=== PATIENT | male | born 1950 | race African-American/Black ===

== ENCOUNTER 2022-03-15 15:39 | Inpatient (IN) | payer MEDICARE, MEDICAID ==
[~2022-03-15] VITALS: Ht 177.8 cm; Wt 84.6 kg
[~2022-03-15 15:39] MED LIST: CYCL5TAB PO; MELO-106 PO; ORPH100T2 PO
[2022-03-15] MEDS ORDERED: SODIUM CHLORIDE 0.9% 1,000 ML IV ONE (15:45)
[2022-03-15] MEDS ORDERED: LORAZEPAM 2MG/ML CPJ IM ONE (15:45)
[2022-03-15] MEDS ORDERED: LORAZEPAM 2MG/ML CPJ IV ONE (16:45)
[2022-03-15] MEDS ORDERED: LEVETIRACETAM 1000MG PREMIX 200 ML IV ONE (16:45)
[2022-03-15 17:32] LABS: BASOPHILS % 0.4 % (0.0-2.0); EOSINOPHILS % 0.3 % (0.0-5.0); HEMATOCRIT. 45.6 % (42.0-52.0); HEMOGLOBIN. 15.4 g/dL (14.0-18.0); LYMPHOCYTES % 16.7 % (20.0-50.0); MEAN CORPUSCULAR HEMOGLOBIN 29.9 pg (28.0-32.0); MEAN CORPUSCULAR VOLUME 88.5 fL (80.0-94.0); MEAN PLATELET VOLUME 8.5 fl (7.4-10.4); MONOCYTES % 10.3 % (2.0-8.0); NEUTROPHILS % 72.3 % (40.0-76.0); PLATELET 227 x1000/uL (130-400); RED BLOOD CELL COUNT 5.15 mill/uL (4.7-6.1); RED CELL DISTRIBUTION WIDTH 13.6 % (11.6-14.6)
[2022-03-15 17:42] LABS: CHLORIDE 106 mEq/L (98-107)
[2022-03-16 03:28] VITALS: BP 128/80
[2022-03-16] MEDS ORDERED: ACETAMINOPHEN 325MG TABLET PO PRN (04:15)
[2022-03-16] MEDS ORDERED: ONDANSETRON HCL 4MG TABLET PO PRN (04:15)
[2022-03-16] MEDS: HYDROCODONE/ACETAMINOPHEN 5/325MG TABLET PO PRN ×3 (04:26→22:12)
[2022-03-16 07:40] LABS: BASOPHILS % 0.6 % (0.0-2.0); EOSINOPHILS % 1.6 % (0.0-5.0); HEMOGLOBIN. 13.3 g/dL (14.0-18.0); LYMPHOCYTES % 23.7 % (20.0-50.0); MEAN CORPUSCULAR HEMOGLOBIN 29.7 pg (28.0-32.0); MEAN CORPUSCULAR VOLUME 89.2 fL (80.0-94.0); MONOCYTES % 12.8 % (2.0-8.0); NEUTROPHILS % 61.3 % (40.0-76.0); PLATELET 196 x1000/uL (130-400); RED BLOOD CELL COUNT 4.48 mill/uL (4.7-6.1); RED CELL DISTRIBUTION WIDTH 13.3 % (11.6-14.6)
[2022-03-16 08:00] VITALS: BP 123/87
[2022-03-16] MEDS: LEVETIRACETAM 500MG TABLET PO SCH ×2 (08:17→22:11)
[2022-03-16 09:05] LABS: CHLORIDE 108 mEq/L (98-107)
[2022-03-16] MEDS ORDERED: POTASSIUM CHLORIDE 20MEQ TABLET SR PO NR (11:54)
[2022-03-16 12:00] VITALS: BP 115/77
[2022-03-16 16:00] VITALS: BP 115/82
[2022-03-16 20:00] VITALS: BP 113/77
[2022-03-16] MEDS ORDERED: PNEUMOCOCCAL 23-VAL P-SAC VAC 0.5 ML IM ONE (21:00)
[2022-03-16] MEDS ORDERED: INFLUENZA VACCINE 05/PF 0.5 ML SYRINGE IM ONE (21:00)
[2022-03-17] VITALS: BP 120/80
[2022-03-17] MEDS: HYDROCODONE/ACETAMINOPHEN 5/325MG TABLET PO PRN ×2 (02:09→12:44)
[2022-03-17 04:00] VITALS: BP 124/76
[2022-03-17 06:51] LABS: BASOPHILS % 0.9 % (0.0-2.0); EOSINOPHILS % 2.6 % (0.0-5.0); HEMATOCRIT. 40.4 % (42.0-52.0); HEMOGLOBIN. 13.5 g/dL (14.0-18.0); LYMPHOCYTES % 33.1 % (20.0-50.0); MEAN CORPUSCULAR HEMOGLOBIN 29.4 pg (28.0-32.0); MEAN CORPUSCULAR VOLUME 88.2 fL (80.0-94.0); MEAN PLATELET VOLUME 8.3 fl (7.4-10.4); MONOCYTES % 14.1 % (2.0-8.0); NEUTROPHILS % 49.3 % (40.0-76.0); PLATELET 193 x1000/uL (130-400); RED BLOOD CELL COUNT 4.58 mill/uL (4.7-6.1); RED CELL DISTRIBUTION WIDTH 13.4 % (11.6-14.6)
[2022-03-17 08:00] VITALS: BP 114/79
[2022-03-17] MEDS: LEVETIRACETAM 500MG TABLET PO SCH (09:21)
[2022-03-17 12:00] VITALS: BP 120/74
[2022-03-17 13:40] LABS: CHLORIDE 104 mEq/L (98-107)
[2022-03-17] MEDS ORDERED: LEVE750T4 MT (13:44)
[2022-03-17 15:04] VITALS: BP 120/74
[2022-03-17 16:00] VITALS: BP 115/82
== END 2022-03-17 19:35 | disposition home or self-care (01) | DRG 101 ==
LOC: ER 15:39 → 8WST 23:18 → ENRESERV 03-16 01:57
PROVIDERS: ADMIT Internal Medicine; ATTEND Internal Medicine
DX: G40.109 Localization-related (focal) (partial) symptomatic epilepsy and epileptic syndromes with simple partial seizures, not intractable, without status epilepticus (principal); I10 Essential (primary) hypertension; Z79.899 Other long term (current) drug therapy; Z98.2 Presence of cerebrospinal fluid drainage device; Z86.73 Personal history of transient ischemic attack (TIA), and cerebral infarction without residual deficits
CPT/HCPCS: 36415; 80048; 80053; 82962; 85025; 90686; 90732; 99285; J1953; J2060; J7030

== ENCOUNTER 2022-07-17 09:58 | Inpatient (IN) | payer MEDICARE, MEDICAID ==
[~2022-07-17] VITALS: Ht 182.9 cm; Wt 89.8 kg
[~2022-07-17 09:58] MED LIST changes: +AMLO5TAB88 MT; +ATOR10TA69 MT; +BACL-141 MT; +DOCU250C69 MT; +GABA-532 MT; +HYDR-4001 MT; +LEVE250T2 MT; +LEVE500T19 MT; +LEVE750T4 MT; +LINA290C MT; +TERA5CAP4 MT
[2022-07-17] MEDS ORDERED: LEVETIRACETAM 1000MG PREMIX 100 ML IV NR (10:30)
[2022-07-17] MEDS ORDERED: LORAZEPAM 2MG/ML CPJ IV NR (10:30)
[2022-07-17 10:47] LABS: BASOPHILS % 0.7 % (0.0-2.0); EOSINOPHILS % 2.2 % (0.0-5.0); HEMATOCRIT. 42.7 % (42.0-52.0); HEMOGLOBIN. 14.3 g/dL (14.0-18.0); LYMPHOCYTES % 28.1 % (20.0-50.0); MEAN CORPUSCULAR HEMOGLOBIN 29.5 pg (28.0-32.0); MEAN CORPUSCULAR VOLUME 87.8 fL (80.0-94.0); MEAN PLATELET VOLUME 8.1 fl (7.4-10.4); MONOCYTES % 11.3 % (2.0-8.0); NEUTROPHILS % 57.7 % (40.0-76.0); PLATELET 207 x1000/uL (130-400); RED BLOOD CELL COUNT 4.86 mill/uL (4.7-6.1); RED CELL DISTRIBUTION WIDTH 13.4 % (11.6-14.6)
[2022-07-17 10:56] LABS: CHLORIDE 108 mEq/L (98-107)
[2022-07-17 11:03] LABS: ETHANOL BLOOD < 10 mg/dL
[2022-07-17 11:18] LABS: CLARITY URINE CLEAR (CLEAR); COLOR URINE YELLOW (YELLOW); KETONES URINE NEGATIVE (NEGATIVE); LEUKOCYTE ESTERASE URINE NEGATIVE (NEGATIVE); NITRITE URINE NEGATIVE (NEGATIVE); OCCULT BLOOD URINE NEGATIVE (NEGATIVE); PROTEIN URINE NEGATIVE (NEGATIVE); SPECIFIC GRAVITY URINE 1.018 (1.005-1.030)
[2022-07-17 12:30] LABS: *AMPHETAMINES SCREEN URINE NEGATIVE (NEGATIVE); *BARBITURATES SCREEN URINE NEGATIVE (NEGATIVE); *BENZODIAZEPINES SCREEN URINE NEGATIVE (NEGATIVE); *COCAINE SCREEN URINE NEGATIVE (NEGATIVE); CANNABINOID URINE SCREEN NEGATIVE (NEGATIVE); METHADONE URINE SCREEN NEGATIVE (NEGATIVE); OPIATES URINE SCREEN NEGATIVE (NEGATIVE); PHENCYCLIDINE URINE SCREEN NEGATIVE (NEGATIVE)
[2022-07-17] MEDS ORDERED: ONDANSETRON HCL 4MG/2ML INJ IV PRN (14:45)
[2022-07-17] MEDS ORDERED: DIPHENHYDRAMINE 50MG/ML VIAL IV PRN (14:45)
[2022-07-17] MEDS ORDERED: IPRATROPIUM/ALBUTEROL 0.5-3(2.5)MG/3ML NEB HHN PRN (14:45)
[2022-07-17] MEDS ORDERED: CLONIDINE 0.1MG TABLET PO PRN (14:45)
[2022-07-17] MEDS ORDERED: ACETAMINOPHEN 325MG TABLET PO PRN (14:45)
[2022-07-17] MEDS ORDERED: LORAZEPAM 2MG/ML CPJ IV PRN (15:45)
[2022-07-17 17:00] VITALS: BP 135/74
[2022-07-17] MEDS ORDERED: ALBUTEROL (0.083%) 2.5MG/3ML NEB HHN PRN (17:30)
[2022-07-17] MEDS ORDERED: IPRATROPIUM BROMIDE (0.02%) 0.5MG/2.5ML NEB HHN PRN (17:30)
[2022-07-17 20:00] VITALS: BP 138/67
[2022-07-17] MEDS ORDERED: LEVETIRACETAM 500MG PREMIX 100 ML IV SCH (20:00)
[2022-07-17 22:00] VITALS: BP 106/54
[2022-07-18] VITALS: BP 104/79
[2022-07-18] MEDS: LEVETIRACETAM 500MG PREMIX 100 ML IV SCH ×2 (00:45→09:35)
[2022-07-18 02:00] VITALS: BP 109/72
[2022-07-18 04:00] VITALS: BP 104/74
[2022-07-18 06:00] VITALS: BP 110/72
[2022-07-18 06:01] LABS: BASOPHILS % 0.7 % (0.0-2.0); EOSINOPHILS % 2.1 % (0.0-5.0); HEMOGLOBIN. 13.2 g/dL (14.0-18.0); LYMPHOCYTES % 27.8 % (20.0-50.0); MEAN CORPUSCULAR VOLUME 88.6 fL (80.0-94.0); MEAN PLATELET VOLUME 8.1 fl (7.4-10.4); MONOCYTES % 11.2 % (2.0-8.0); NEUTROPHILS % 58.2 % (40.0-76.0); PLATELET 212 x1000/uL (130-400); RED BLOOD CELL COUNT 4.41 mill/uL (4.7-6.1); RED CELL DISTRIBUTION WIDTH 13.2 % (11.6-14.6)
[2022-07-18 06:38] LABS: CHLORIDE 108 mEq/L (98-107)
[2022-07-18 11:39] VITALS: BP 117/79
[2022-07-18] MEDS: ZONISAMIDE 100MG CAPSULE PO SCH ×2 (12:24→18:35)
[2022-07-18] MEDS ORDERED: ZONI100C45 PO (12:47)
[2022-07-18 16:00] VITALS: BP 120/74
[2022-07-18] MEDS ORDERED: LEVETIRACETAM 250MG TABLET PO SCH (21:00)
== END 2022-07-18 19:44 | disposition left against medical advice (07) | DRG 101 ==
LOC: ER 09:58 → ENRESERV 14:56 → 7WST 16:58
PROVIDERS: ADMIT Internal Medicine; ATTEND Internal Medicine
DX: R56.9 Unspecified convulsions (principal); F03.90 Unspecified dementia, unspecified severity, without behavioral disturbance, psychotic disturbance, mood disturbance, and anxiety; I10 Essential (primary) hypertension; G83.14 Monoplegia of lower limb affecting left nondominant side; N40.0 Benign prostatic hyperplasia without lower urinary tract symptoms; E78.5 Hyperlipidemia, unspecified; H53.462 Homonymous bilateral field defects, left side; Z53.29 Procedure and treatment not carried out because of patient's decision for other reasons; I25.2 Old myocardial infarction; Z98.2 Presence of cerebrospinal fluid drainage device; Z86.73 Personal history of transient ischemic attack (TIA), and cerebral infarction without residual deficits
CPT/HCPCS: 36415; 71045; 80053; 80185; 80305; 80320; 81003; 85025; 93970; 99285; J1200; J1953; J2060; G0480

== ENCOUNTER 2022-08-19 17:33 | Emergency (ER) | payer MEDICARE, MEDICAID ==
[~2022-08-19] VITALS: Ht 185.4 cm; Wt 79.0 kg
[~2022-08-19 17:33] MED LIST changes: +ZONI100C45 PO
[2022-08-19] MEDS ORDERED: LEVETIRACETAM 1000MG PREMIX 100 ML IV ONE (18:15)
[2022-08-19] MEDS ORDERED: MIDAZOLAM HCL 2 MG/2 ML VIAL IM ONE (18:15)
[2022-08-19] MEDS ORDERED: LEVETIRACETAM 1000MG PREMIX 100 ML IV NR (18:15)
[2022-08-19 18:26] LABS: BASOPHILS % 0.6 % (0.0-2.0); EOSINOPHILS % 1.3 % (0.0-5.0); HEMOGLOBIN. 14.8 g/dL (14.0-18.0); LYMPHOCYTES % 29.4 % (20.0-50.0); MEAN CORPUSCULAR HEMOGLOBIN 29.9 pg (28.0-32.0); MEAN CORPUSCULAR VOLUME 88.9 fL (80.0-94.0); MEAN PLATELET VOLUME 7.8 fl (7.4-10.4); MONOCYTES % 10.4 % (2.0-8.0); NEUTROPHILS % 58.3 % (40.0-76.0); PLATELET 206 x1000/uL (130-400); RED BLOOD CELL COUNT 4.95 mill/uL (4.7-6.1); RED CELL DISTRIBUTION WIDTH 13.7 % (11.6-14.6)
[2022-08-19 18:39] LABS: CHLORIDE 107 mEq/L (98-107)
[2022-08-19 18:47] LABS: ETHANOL BLOOD < 10 mg/dL
[2022-08-19] MEDS ORDERED: KETOROLAC 30MG/ML VIAL IV ONE (19:45)
[2022-08-19 19:57] LABS: CLARITY URINE CLEAR (CLEAR); COLOR URINE YELLOW (YELLOW); KETONES URINE NEGATIVE (NEGATIVE); LEUKOCYTE ESTERASE URINE NEGATIVE (NEGATIVE); NITRITE URINE NEGATIVE (NEGATIVE); OCCULT BLOOD URINE 1+ (NEGATIVE); PROTEIN URINE NEGATIVE (NEGATIVE); SPECIFIC GRAVITY URINE 1.021 (1.005-1.030)
[2022-08-19 20:08] LABS: *AMPHETAMINES SCREEN URINE NEGATIVE (NEGATIVE); *BARBITURATES SCREEN URINE NEGATIVE (NEGATIVE); *BENZODIAZEPINES SCREEN URINE PRESUMTIVE POSITIVE (NEGATIVE); *COCAINE SCREEN URINE NEGATIVE (NEGATIVE); CANNABINOID URINE SCREEN NEGATIVE (NEGATIVE); METHADONE URINE SCREEN NEGATIVE (NEGATIVE); OPIATES URINE SCREEN PRESUMTIVE POSITIVE (NEGATIVE); PHENCYCLIDINE URINE SCREEN NEGATIVE (NEGATIVE)
[2022-08-19 20:45] VITALS: BP 122/67
== END 2022-08-19 23:07 | disposition home or self-care (01) ==
LOC: ER 17:33
DX: R56.9 Unspecified convulsions (principal); I25.2 Old myocardial infarction; I10 Essential (primary) hypertension; Z79.899 Other long term (current) drug therapy; Z86.73 Personal history of transient ischemic attack (TIA), and cerebral infarction without residual deficits
CPT/HCPCS: 36415; 80053; 80305; 80320; 81003; 85025; 96365; 96372; 96375; 99284; J1885; J1953; J2250; G0480

== ENCOUNTER 2022-08-29 17:14 | Inpatient (IN) | payer MEDICARE, MEDICAID ==
[~2022-08-29] VITALS: Ht 182.9 cm; Wt 82.6 kg
[~2022-08-29 17:14] MED LIST changes: -ORPH100T2 PO; +[UNRECOGNIZED DRUG - CODE] PO
[2022-08-29] MEDS ORDERED: NITROGLYCERIN 0.4MG TABLET SL SL PRN (19:15)
[2022-08-29 19:52] LABS: CHLORIDE 109 mEq/L (98-107)
[2022-08-29 20:18] LABS: EOSINOPHILS % 1.7 % (0.0-5.0); HEMATOCRIT. 40.4 % (42.0-52.0); HEMOGLOBIN. 13.4 g/dL (14.0-18.0); LYMPHOCYTES % 25.9 % (20.0-50.0); MEAN CORPUSCULAR HEMOGLOBIN 29.8 pg (28.0-32.0); MEAN CORPUSCULAR VOLUME 89.5 fL (80.0-94.0); MEAN PLATELET VOLUME 8.3 fl (7.4-10.4); MONOCYTES % 11.9 % (2.0-8.0); NEUTROPHILS % 59.5 % (40.0-76.0); PLATELET 218 x1000/uL (130-400); RED BLOOD CELL COUNT 4.52 mill/uL (4.7-6.1); RED CELL DISTRIBUTION WIDTH 13.5 % (11.6-14.6)
[2022-08-29] MEDS ORDERED: LEVETIRACETAM 500MG TABLET PO ONE (21:15)
[2022-08-29] MEDS ORDERED: HYDROCODONE/ACETAMINOPHEN 5/325MG TABLET PO ONE (21:15)
[2022-08-29] MEDS ORDERED: MAGNESIUM/ALUMINUM HYDROXIDE/SIMETHICONE 30ML UDC PO PRN (22:15)
[2022-08-29] MEDS ORDERED: ONDANSETRON HCL 4MG/2ML INJ IV PRN (22:15)
[2022-08-29] MEDS ORDERED: GUAIFENESIN 200MG/10ML SUGAR FREE UDC PO PRN (22:15)
[2022-08-29] MEDS ORDERED: CLONIDINE 0.1MG TABLET PO PRN (22:15)
[2022-08-29] MEDS ORDERED: IPRATROPIUM/ALBUTEROL 0.5-3(2.5)MG/3ML NEB HHN PRN (22:15)
[2022-08-29] MEDS ORDERED: HYDROCODONE/ACETAMINOPHEN 5/325MG TABLET PO NR (23:00)
[2022-08-29] MEDS ORDERED: LEVETIRACETAM 500MG TABLET PO NR (23:00)
[2022-08-30 02:00] VITALS: BP 117/69
[2022-08-30 03:09] VITALS: BP 117/69
[2022-08-30] MEDS: PANTOPRAZOLE 40MG DR TABLET PO SCH (06:26)
[2022-08-30] MEDS: ACETAMINOPHEN 325MG TABLET PO PRN (06:27)
[2022-08-30 07:04] LABS: BASOPHILS % 0.6 % (0.0-2.0); EOSINOPHILS % 2.1 % (0.0-5.0); HEMATOCRIT. 38.4 % (42.0-52.0); HEMOGLOBIN. 13.2 g/dL (14.0-18.0); LYMPHOCYTES % 33.7 % (20.0-50.0); MEAN CORPUSCULAR HEMOGLOBIN 30.5 pg (28.0-32.0); MEAN PLATELET VOLUME 8.4 fl (7.4-10.4); MONOCYTES % 13.2 % (2.0-8.0); NEUTROPHILS % 50.4 % (40.0-76.0); PLATELET 212 x1000/uL (130-400); RED BLOOD CELL COUNT 4.32 mill/uL (4.7-6.1); RED CELL DISTRIBUTION WIDTH 13.6 % (11.6-14.6)
[2022-08-30 07:07] LABS: CHLORIDE 111 mEq/L (98-107)
[2022-08-30 07:21] LABS: CREATINE KINASE 87 IU/L (39-308); CREATINE KINASE MB FRACTION 1.2 ng/mL (0.5-3.6); HDL CHOLESTEROL 67 mg/dL (40-59); LDL CHOLESTEROL 66 mg/dL (5-100); T4 FREE 0.94 ng/dL (0.76-1.46)
[2022-08-30 08:00] VITALS: BP_SYST 107; BP_SYST 118; BP_DIAS 67; BP_DIAS 75
[2022-08-30] MEDS: LEVETIRACETAM 500MG/5ML CUP PO SCH ×2 (10:14→21:56)
[2022-08-30] MEDS: FOLIC ACID 1MG TABLET PO SCH (10:16)
[2022-08-30] MEDS: ASPIRIN 81MG EC TABLET PO SCH (10:17)
[2022-08-30] MEDS: FERROUS SULFATE 325MG TABLET PO SCH (10:17)
[2022-08-30] MEDS: THIAMINE HCL 100MG TABLET PO SCH (10:19)
[2022-08-30] MEDS: MULTIVITAMINS,THER W-MINERALS TABLET PO SCH (10:19)
[2022-08-30] MEDS: ENOXAPARIN 40MG/0.4ML SYR SUBCUT SCH (10:20)
[2022-08-30] MEDS: DOCUSATE SODIUM 100MG CAPSULE PO PRN (10:40)
[2022-08-30] MEDS: ZONISAMIDE 100MG CAPSULE PO SCH (10:40)
[2022-08-30 11:57] LABS: *AMPHETAMINES SCREEN URINE NEGATIVE (NEGATIVE); *BARBITURATES SCREEN URINE NEGATIVE (NEGATIVE); *BENZODIAZEPINES SCREEN URINE NEGATIVE (NEGATIVE); *COCAINE SCREEN URINE NEGATIVE (NEGATIVE); CANNABINOID URINE SCREEN NEGATIVE (NEGATIVE); METHADONE URINE SCREEN NEGATIVE (NEGATIVE); OPIATES URINE SCREEN PRESUMTIVE POSITIVE (NEGATIVE); PHENCYCLIDINE URINE SCREEN NEGATIVE (NEGATIVE)
[2022-08-30 12:00] VITALS: BP 112/72
[2022-08-30 16:52] LABS: CREATINE KINASE MB FRACTION 1.2 ng/mL (0.5-3.6)
[2022-08-30 20:00] VITALS: BP 112/68
[2022-08-30] MEDS: ATORVASTATIN CALCIUM 10MG TABLET PO SCH (21:56)
[2022-08-30] MEDS: GABAPENTIN 300MG CAPSULE PO SCH (21:56)
[2022-08-31] VITALS: BP 136/82
[2022-08-31 00:18] LABS: CREATINE KINASE MB FRACTION 1.2 ng/mL (0.5-3.6)
[2022-08-31] MEDS ORDERED: HYDROCODONE/ACETAMINOPHEN 5/325MG TABLET PO NR (00:30)
[2022-08-31 04:00] VITALS: BP 139/89
[2022-08-31] MEDS: PANTOPRAZOLE 40MG DR TABLET PO SCH (06:42)
[2022-08-31] MEDS: DOCUSATE SODIUM 100MG CAPSULE PO PRN (06:56)
[2022-08-31 08:00] VITALS: BP 122/77
[2022-08-31 08:05] LABS: BASOPHILS % 0.8 % (0.0-2.0); HEMATOCRIT. 42.3 % (42.0-52.0); HEMOGLOBIN. 14.1 g/dL (14.0-18.0); LYMPHOCYTES % 32.1 % (20.0-50.0); MEAN CORPUSCULAR VOLUME 89.8 fL (80.0-94.0); MEAN PLATELET VOLUME 8.1 fl (7.4-10.4); MONOCYTES % 13.2 % (2.0-8.0); NEUTROPHILS % 50.9 % (40.0-76.0); PLATELET 226 x1000/uL (130-400); RED BLOOD CELL COUNT 4.71 mill/uL (4.7-6.1); RED CELL DISTRIBUTION WIDTH 13.5 % (11.6-14.6)
[2022-08-31 08:32] LABS: CHLORIDE 104 mEq/L (98-107)
[2022-08-31] MEDS: ASPIRIN 81MG EC TABLET PO SCH (09:14)
[2022-08-31] MEDS: FERROUS SULFATE 325MG TABLET PO SCH (09:14)
[2022-08-31] MEDS: FOLIC ACID 1MG TABLET PO SCH (09:14)
[2022-08-31] MEDS: ENOXAPARIN 40MG/0.4ML SYR SUBCUT SCH (09:15)
[2022-08-31] MEDS: ZONISAMIDE 100MG CAPSULE PO SCH (09:15)
[2022-08-31] MEDS: MULTIVITAMINS,THER W-MINERALS TABLET PO SCH (09:15)
[2022-08-31] MEDS: LEVETIRACETAM 500MG/5ML CUP PO SCH ×2 (09:16→20:37)
[2022-08-31] MEDS: THIAMINE HCL 100MG TABLET PO SCH (09:16)
[2022-08-31 12:00] VITALS: BP 123/74
[2022-08-31] MEDS: ACETAMINOPHEN 325MG TABLET PO PRN (14:17)
[2022-08-31] MEDS ORDERED: BISACODYL 10MG SUPP PR PRN (14:30)
[2022-08-31 16:00] VITALS: BP 129/78
[2022-08-31 20:00] VITALS: BP 112/57
[2022-08-31] MEDS ORDERED: MAGNESIUM 2 G PREMIX 50 ML IV ONE (20:00)
[2022-08-31] MEDS: TERAZOSIN HCL 5MG CAPSULE PO SCH (20:31)
[2022-08-31] MEDS: GABAPENTIN 300MG CAPSULE PO SCH (20:31)
[2022-08-31] MEDS: ATORVASTATIN CALCIUM 10MG TABLET PO SCH (20:31)
[2022-09-01] VITALS: BP 100/56
[2022-09-01 04:00] VITALS: BP 107/64
[2022-09-01 07:24] LABS: BASOPHILS % 0.8 % (0.0-2.0); EOSINOPHILS % 2.3 % (0.0-5.0); HEMATOCRIT. 39.3 % (42.0-52.0); HEMOGLOBIN. 13.5 g/dL (14.0-18.0); LYMPHOCYTES % 29.6 % (20.0-50.0); MEAN CORPUSCULAR HEMOGLOBIN 30.2 pg (28.0-32.0); MEAN CORPUSCULAR VOLUME 88.3 fL (80.0-94.0); MEAN PLATELET VOLUME 8.2 fl (7.4-10.4); MONOCYTES % 13.6 % (2.0-8.0); NEUTROPHILS % 53.7 % (40.0-76.0); PLATELET 217 x1000/uL (130-400); RED BLOOD CELL COUNT 4.45 mill/uL (4.7-6.1); RED CELL DISTRIBUTION WIDTH 13.2 % (11.6-14.6)
[2022-09-01 07:32] LABS: CHLORIDE 105 mEq/L (98-107)
[2022-09-01 07:40] LABS: PHOSPHORUS 3.3 mg/dL (2.5-4.9)
[2022-09-01 08:00] VITALS: BP 110/62
[2022-09-01] MEDS: MULTIVITAMINS,THER W-MINERALS TABLET PO SCH (08:31)
[2022-09-01] MEDS: THIAMINE HCL 100MG TABLET PO SCH (08:31)
[2022-09-01] MEDS: FERROUS SULFATE 325MG TABLET PO SCH (08:31)
[2022-09-01] MEDS: FOLIC ACID 1MG TABLET PO SCH (08:31)
[2022-09-01] MEDS: ZONISAMIDE 100MG CAPSULE PO SCH (08:31)
[2022-09-01] MEDS: ASPIRIN 81MG EC TABLET PO SCH (08:31)
[2022-09-01] MEDS: PANTOPRAZOLE 40MG DR TABLET PO SCH (08:31)
[2022-09-01] MEDS: ENOXAPARIN 40MG/0.4ML SYR SUBCUT SCH (08:33)
[2022-09-01] MEDS: LEVETIRACETAM 500MG/5ML CUP PO SCH ×2 (09:14→20:39)
[2022-09-01 12:00] VITALS: BP 115/69
[2022-09-01] MEDS: HYDROCODONE/ACETAMINOPHEN 5/325MG TABLET PO PRN (13:29)
[2022-09-01] MEDS ORDERED: NALOXONE HCL 0.4MG/ML VIAL IV PRN (13:30)
[2022-09-01 16:00] VITALS: BP 118/72
[2022-09-01 20:00] VITALS: BP 112/74
[2022-09-01] MEDS: ATORVASTATIN CALCIUM 10MG TABLET PO SCH (20:39)
[2022-09-01] MEDS: GABAPENTIN 300MG CAPSULE PO SCH (20:40)
[2022-09-01] MEDS: TERAZOSIN HCL 5MG CAPSULE PO SCH (20:51)
[2022-09-02] VITALS: BP 94/61
[2022-09-02] MEDS: HYDROCODONE/ACETAMINOPHEN 5/325MG TABLET PO PRN ×3 (01:57→21:07)
[2022-09-02 04:00] VITALS: BP 98/62
[2022-09-02 06:54] LABS: PROTHROMBIN TIME 10.6 sec (9.6-11.0)
[2022-09-02 07:31] LABS: CHLORIDE 106 mEq/L (98-107)
[2022-09-02 07:47] LABS: BASOPHILS % 0.7 % (0.0-2.0); EOSINOPHILS % 2.4 % (0.0-5.0); HEMATOCRIT. 42.7 % (42.0-52.0); HEMOGLOBIN. 14.4 g/dL (14.0-18.0); LYMPHOCYTES % 33.8 % (20.0-50.0); MEAN PLATELET VOLUME 8.1 fl (7.4-10.4); MONOCYTES % 12.8 % (2.0-8.0); NEUTROPHILS % 50.3 % (40.0-76.0); PLATELET 230 x1000/uL (130-400); RED CELL DISTRIBUTION WIDTH 13.4 % (11.6-14.6)
[2022-09-02 08:00] VITALS: BP 109/66
[2022-09-02] MEDS: LEVETIRACETAM 500MG/5ML CUP PO SCH ×2 (08:58→21:04)
[2022-09-02] MEDS: ZONISAMIDE 100MG CAPSULE PO SCH (08:59)
[2022-09-02] MEDS: FOLIC ACID 1MG TABLET PO SCH (08:59)
[2022-09-02] MEDS: MULTIVITAMINS,THER W-MINERALS TABLET PO SCH (08:59)
[2022-09-02] MEDS: ENOXAPARIN 40MG/0.4ML SYR SUBCUT SCH (08:59)
[2022-09-02] MEDS: FERROUS SULFATE 325MG TABLET PO SCH (08:59)
[2022-09-02] MEDS: ASPIRIN 81MG EC TABLET PO SCH (08:59)
[2022-09-02] MEDS: THIAMINE HCL 100MG TABLET PO SCH (08:59)
[2022-09-02] MEDS: FAMOTIDINE 20MG TABLET PO SCH ×2 (09:11→21:04)
[2022-09-02] MEDS ORDERED: IOHEXOL-350 100 ML BOTTLE ONE (10:05)
[2022-09-02] MEDS ORDERED: NITROGLYCERIN SPRAY/4.9GM CAN TL ONE (14:15)
[2022-09-02 20:00] VITALS: BP 109/61
[2022-09-02] MEDS: TERAZOSIN HCL 5MG CAPSULE PO SCH (21:00)
[2022-09-02] MEDS: GABAPENTIN 300MG CAPSULE PO SCH (21:04)
[2022-09-02] MEDS: ATORVASTATIN CALCIUM 10MG TABLET PO SCH (21:04)
[2022-09-02] MEDS: DOCUSATE SODIUM 100MG CAPSULE PO PRN (21:28)
[2022-09-03] VITALS: BP 112/69
[2022-09-03] MEDS: HYDROCODONE/ACETAMINOPHEN 5/325MG TABLET PO PRN ×2 (00:25→09:34)
[2022-09-03 04:00] VITALS: BP 116/71
[2022-09-03 08:00] VITALS: BP 118/82
[2022-09-03] MEDS: ENOXAPARIN 40MG/0.4ML SYR SUBCUT SCH (09:00)
[2022-09-03] MEDS: MULTIVITAMINS,THER W-MINERALS TABLET PO SCH (09:00)
[2022-09-03] MEDS: FERROUS SULFATE 325MG TABLET PO SCH (09:21)
[2022-09-03] MEDS: FAMOTIDINE 20MG TABLET PO SCH (09:22)
[2022-09-03] MEDS: ASPIRIN 81MG EC TABLET PO SCH (09:22)
[2022-09-03] MEDS: THIAMINE HCL 100MG TABLET PO SCH (09:22)
[2022-09-03] MEDS: ZONISAMIDE 100MG CAPSULE PO SCH (09:22)
[2022-09-03] MEDS: FOLIC ACID 1MG TABLET PO SCH (09:22)
[2022-09-03 09:34] VITALS: BP 116/71
[2022-09-03] MEDS: LEVETIRACETAM 500MG/5ML CUP PO SCH (09:38)
== END 2022-09-03 12:26 | disposition home or self-care (01) | DRG 313 ==
LOC: ER 17:14 → 8WST 20:41 → SUPCPDRO 23:22 → ENRESERV 23:48
PROVIDERS: ADMIT Internal Medicine; ATTEND Internal Medicine
DX: R07.89 Other chest pain (principal); I42.9 Cardiomyopathy, unspecified; G40.909 Epilepsy, unspecified, not intractable, without status epilepticus; I10 Essential (primary) hypertension; E78.5 Hyperlipidemia, unspecified; G62.9 Polyneuropathy, unspecified; F03.90 Unspecified dementia, unspecified severity, without behavioral disturbance, psychotic disturbance, mood disturbance, and anxiety; E78.00 Pure hypercholesterolemia, unspecified; I25.10 Atherosclerotic heart disease of native coronary artery without angina pectoris; G89.29 Other chronic pain; Z86.73 Personal history of transient ischemic attack (TIA), and cerebral infarction without residual deficits; Z98.2 Presence of cerebrospinal fluid drainage device; I25.2 Old myocardial infarction; Z79.899 Other long term (current) drug therapy
CPT/HCPCS: 36415; 71045; 75571; 80048; 80053; 80061; 80305; 82550; 82553; 83036; 83735; 83880; 84100; 84439; 84443; 84484; 85025; 85379; 93005; 93306; 93970; 97162; 97535; 99285; J1650; Q9967

== ENCOUNTER 2022-09-19 12:11 | Emergency (ER) | payer MEDICARE, MEDICAID ==
[~2022-09-19] VITALS: Ht 177.8 cm; Wt 90.0 kg
[~2022-09-19 12:11] MED LIST changes: +ORPH100T2 PO; -[UNRECOGNIZED DRUG - CODE] PO
[2022-09-19 13:00] LABS: BASOPHILS % 0.8 % (0.0-2.0); HEMATOCRIT. 43.9 % (42.0-52.0); HEMOGLOBIN. 14.4 g/dL (14.0-18.0); LYMPHOCYTES % 26.4 % (20.0-50.0); MEAN CORPUSCULAR HEMOGLOBIN 29.4 pg (28.0-32.0); MEAN CORPUSCULAR VOLUME 89.5 fL (80.0-94.0); MEAN PLATELET VOLUME 7.3 fl (7.4-10.4); MONOCYTES % 10.7 % (2.0-8.0); NEUTROPHILS % 60.1 % (40.0-76.0); PLATELET 281 x1000/uL (130-400); RED CELL DISTRIBUTION WIDTH 13.5 % (11.6-14.6)
[2022-09-19 13:04] LABS: CHLORIDE 111 mEq/L (98-107)
[2022-09-19 13:06] LABS: PROTHROMBIN TIME 10.9 sec (9.6-11.0)
[2022-09-19 13:30] LABS: CLARITY URINE CLEAR (CLEAR); COLOR URINE YELLOW (YELLOW); KETONES URINE TRACE (NEGATIVE); LEUKOCYTE ESTERASE URINE 1+ (NEGATIVE); NITRITE URINE NEGATIVE (NEGATIVE); OCCULT BLOOD URINE TRACE (NEGATIVE); PH URINE 6.5 (4.5-8.0); PROTEIN URINE NEGATIVE (NEGATIVE); SPECIFIC GRAVITY URINE 1.024 (1.005-1.030)
[2022-09-19 17:28] VITALS: BP 120/88
== END 2022-09-19 17:32 | disposition home or self-care (01) ==
LOC: ER 12:45
DX: R07.89 Other chest pain (principal); E78.00 Pure hypercholesterolemia, unspecified; I25.2 Old myocardial infarction; I10 Essential (primary) hypertension; Z91.013 Allergy to seafood; Z98.890 Other specified postprocedural states; Z79.899 Other long term (current) drug therapy; Z86.73 Personal history of transient ischemic attack (TIA), and cerebral infarction without residual deficits; Z86.59 Personal history of other mental and behavioral disorders
CPT/HCPCS: 36415; 71045; 80053; 81003; 84484; 85025; 93005; 99285

== ENCOUNTER 2023-01-15 08:51 | Emergency (ER) | payer MEDICARE, MEDICAID ==
[~2023-01-15] VITALS: Ht 177.8 cm; Wt 77.0 kg
[~2023-01-15 08:51] MED LIST changes: -ORPH100T2 PO; +[UNRECOGNIZED DRUG - CODE] PO
[2023-01-15 08:59] VITALS: O2SAT 98
[2023-01-15 09:10] VITALS: BP 104/67; PULSE 81; RESP 16; TEMP 98.2
[2023-01-15] MEDS ORDERED: AMOX1TAB16 MT (09:31)
[2023-01-15] MEDS ORDERED: SULF1TAB48 MT (09:31)
== END 2023-01-15 10:29 | disposition home or self-care (01) ==
LOC: ER 08:51
DX: L97.119 Non-pressure chronic ulcer of right thigh with unspecified severity (principal); I25.2 Old myocardial infarction; I10 Essential (primary) hypertension; Z91.013 Allergy to seafood; Z79.899 Other long term (current) drug therapy
CPT/HCPCS: 99283

== ENCOUNTER 2023-07-16 01:51 | Inpatient (IN) | payer MEDICARE, MEDICAID ==
[~2023-07-16] VITALS: Ht 177.8 cm; Wt 81.6 kg
[~2023-07-16 01:51] MED LIST changes: -HYDR-4001 MT; -LEVE250T2 MT; -LEVE750T4 MT; +LEVO750T68 PO
[2023-07-16 02:52] LABS: BASOPHILS % 0.5 % (0.0-2.0); EOSINOPHILS % 1.9 % (0.0-5.0); HEMOGLOBIN. 15.8 g/dL (14.0-18.0); MEAN CORPUSCULAR HEMOGLOBIN 29.5 pg (28.0-32.0); MEAN CORPUSCULAR VOLUME 89.6 fL (80.0-94.0); MEAN PLATELET VOLUME 7.9 fl (7.4-10.4); MONOCYTES % 10.4 % (2.0-8.0); NEUTROPHILS % 59.2 % (40.0-76.0); PLATELET 238 x1000/uL (130-400); RED BLOOD CELL COUNT 5.36 mill/uL (4.7-6.1); RED CELL DISTRIBUTION WIDTH 13.6 % (11.6-14.6); WHITE BLOOD COUNT 4.7 x1000/uL (4.5-11.0)
[2023-07-16 03:13] LABS: ALANINE AMINOTRANSFERASE < 7 IU/L (10-49); ALBUMIN 4.7 g/dL (3.2-4.8); ASPARTATE AMINOTRANSFERASE 14 IU/L (<34); BILIRUBIN TOTAL 0.6 mg/dL (0.1-1.0); CALCIUM 8.6 mg/dL (8.7-10.4); CARBON DIOXIDE 26 mEq/L (21-32); CHLORIDE 110 mEq/L (98-107); ETHANOL BLOOD < 10 mg/dL (<10); GLUCOSE 79 mg/dL (70-105); PROTEIN TOTAL 7.5 g/dL (6.0-8.3); SODIUM 140 mEq/L (136-145); UREA NITROGEN BLOOD 16 mg/dL (9-23)
[2023-07-16 03:22] LABS: TROPONIN I HIGH SENSITIVITY < 4 ng/L (3.0-53)
[2023-07-16] MEDS: ASPIRIN 81MG EC TABLET PO NR (07:02)
[2023-07-16] MEDS ORDERED: IPRATROPIUM/ALBUTEROL 0.5-3(2.5)MG/3ML NEB HHN PRN (07:30)
[2023-07-16] MEDS ORDERED: CLONIDINE 0.1MG TABLET PO PRN (07:30)
[2023-07-16] MEDS ORDERED: DOCUSATE SODIUM 100MG CAPSULE PO PRN (07:30)
[2023-07-16] MEDS ORDERED: NITROGLYCERIN 0.4MG TABLET SL SL PRN (07:30)
[2023-07-16] MEDS ORDERED: MAGNESIUM/ALUMINUM HYDROXIDE/SIMETHICONE 30ML UDC PO PRN (07:30)
[2023-07-16] MEDS ORDERED: ACETAMINOPHEN 325MG TABLET PO PRN ×2 (07:30)
[2023-07-16] MEDS ORDERED: GUAIFENESIN 200MG/10ML SUGAR FREE UDC PO PRN (07:30)
[2023-07-16] MEDS ORDERED: ONDANSETRON HCL 4MG/2ML INJ IV PRN (07:30)
[2023-07-16 09:27] LABS: T4 FREE 1.03 ng/dL (0.89-1.76); THYROID STIMULATING HORMONE 1.75 uIU/mL (0.55-4.78)
[2023-07-16 10:00] VITALS: BP 144/92; PULSE 60; RESP 18; TEMP 97.6
[2023-07-16] MEDS: ASPIRIN 81MG EC TABLET PO SCH (10:09)
[2023-07-16] MEDS: ZONISAMIDE 100MG CAPSULE PO SCH (10:10)
[2023-07-16] MEDS: PANTOPRAZOLE 40MG DR TABLET PO SCH (10:10)
[2023-07-16] MEDS: LEVETIRACETAM 500MG TABLET PO SCH (10:11)
[2023-07-16 11:37] VITALS: BP 113/60; PULSE 56; RESP 19; TEMP 97.7
[2023-07-16 11:38] VITALS: BP_SYST 113; BP_SYST 119; BP_DIAS 80; BP_DIAS 82; PULSE 63; PULSE 79
[2023-07-16 16:28] VITALS: BP 139/91; PULSE 63; RESP 18; TEMP 98.3
[2023-07-16] MEDS: ENOXAPARIN 40MG/0.4ML SYR SUBCUT SCH (17:34)
[2023-07-16 20:00] VITALS: BP_SYST 114; BP_SYST 121; BP_SYST 123; BP_DIAS 75; BP_DIAS 81; BP_DIAS 90; PULSE 58; RESP 18; TEMP 98
[2023-07-16] MEDS: TERAZOSIN HCL 5MG CAPSULE PO SCH (20:30)
[2023-07-16] MEDS: ATORVASTATIN CALCIUM 20MG TABLET PO SCH (20:30)
[2023-07-16 23:56] VITALS: BP 91/52; PULSE 55; RESP 19; TEMP 97.9
[2023-07-17 01:10] LABS: CREATINE KINASE 81 IU/L (46-171); CREATINE KINASE MB FRACTION 1.3 ng/mL (0.5-3.6)
[2023-07-17 01:17] LABS: TROPONIN I HIGH SENSITIVITY < 4 ng/L (3.0-53)
[2023-07-17 04:00] VITALS: BP 102/61; PULSE 51; RESP 18; TEMP 97.8
[2023-07-17 07:03] LABS: BASOPHILS % 0.7 % (0.0-2.0); EOSINOPHILS % 2.2 % (0.0-5.0); HEMATOCRIT. 40.6 % (42.0-52.0); HEMOGLOBIN. 13.7 g/dL (14.0-18.0); LYMPHOCYTES % 28.1 % (20.0-50.0); MEAN CORPUSCULAR HEMOGLOBIN 29.9 pg (28.0-32.0); MEAN CORPUSCULAR HGB CONC 33.7 g/dL (31.0-37.0); MEAN CORPUSCULAR VOLUME 88.7 fL (80.0-94.0); MEAN PLATELET VOLUME 8.4 fl (7.4-10.4); MONOCYTES % 10.8 % (2.0-8.0); NEUTROPHILS % 58.2 % (40.0-76.0); PLATELET 196 x1000/uL (130-400); RED BLOOD CELL COUNT 4.57 mill/uL (4.7-6.1); RED CELL DISTRIBUTION WIDTH 13.1 % (11.6-14.6)
[2023-07-17 07:26] LABS: CALCIUM 8.3 mg/dL (8.7-10.4); CARBON DIOXIDE 23 mEq/L (21-32); CHLORIDE 109 mEq/L (98-107); CREATININE 0.9 mg/dL (0.6-1.3); GLUCOSE 79 mg/dL (70-105); PHOSPHORUS 2.5 mg/dL (2.5-4.9); POTASSIUM 3.7 mEq/L (3.5-5.1); SODIUM 140 mEq/L (136-145); UREA NITROGEN BLOOD 18 mg/dL (9-23)
[2023-07-17 07:59] VITALS: BP 97/52; PULSE 48; RESP 18; TEMP 98
[2023-07-17] MEDS ORDERED: ATOR20TA PO (09:28)
[2023-07-17 10:07] VITALS: BP 97/52; PULSE 58; TEMP 98; O2SAT 93
[2023-07-17] MEDS: INFLUENZA VACCINE 05/PF 0.5 ML SYRINGE IM ONE (10:44)
== END 2023-07-17 13:34 | disposition home health service (06) | DRG 311 ==
LOC: ER 01:51 → 7WST 06:30
PROVIDERS: ADMIT Internal Medicine; ATTEND Internal Medicine
DX: I20.0 Unstable angina (principal); E78.5 Hyperlipidemia, unspecified; R00.1 Bradycardia, unspecified; R56.9 Unspecified convulsions; Z20.822 Contact with and (suspected) exposure to COVID-19; I10 Essential (primary) hypertension; I25.2 Old myocardial infarction; N40.0 Benign prostatic hyperplasia without lower urinary tract symptoms; Z79.82 Long term (current) use of aspirin; Z86.73 Personal history of transient ischemic attack (TIA), and cerebral infarction without residual deficits; Z98.2 Presence of cerebrospinal fluid drainage device
CPT/HCPCS: 36415; 71045; 72040; 73120; 80048; 80053; 80061; 80320; 82542; 82550; 82553; 83036; 83735; 83880; 84100; 84153; 84439; 84443; 84484; 85025; 85379; 87426; 90686; 93005; 93880; 97162; 99285; J1650; G0480

== ENCOUNTER 2023-07-29 23:07 | Emergency (ER) | payer MEDICARE, MEDICAID ==
[~2023-07-29] VITALS: Ht 177.8 cm; Wt 82.0 kg
[~2023-07-29 23:07] MED LIST changes: -AMLO5TAB88 MT; +ATOR20TA PO; -LEVO750T68 PO; -MELO-106 PO; -[UNRECOGNIZED DRUG - CODE] PO
[2023-07-29 23:11] VITALS: TEMP 97.9; O2SAT 100
[2023-07-30 01:44] LABS: BASOPHILS % 1.3 % (0.0-2.0); EOSINOPHILS % 1.5 % (0.0-5.0); HEMATOCRIT. 45.4 % (42.0-52.0); HEMOGLOBIN. 15.1 g/dL (14.0-18.0); LYMPHOCYTES % 37.1 % (20.0-50.0); MEAN CORPUSCULAR HEMOGLOBIN 30.4 pg (28.0-32.0); MEAN CORPUSCULAR HGB CONC 33.3 g/dL (31.0-37.0); MEAN CORPUSCULAR VOLUME 91.2 fL (80.0-94.0); MEAN PLATELET VOLUME 7.8 fl (7.4-10.4); NEUTROPHILS % 48.1 % (40.0-76.0); PLATELET 234 x1000/uL (130-400); RED BLOOD CELL COUNT 4.98 mill/uL (4.7-6.1); RED CELL DISTRIBUTION WIDTH 13.3 % (11.6-14.6); WHITE BLOOD COUNT 4.1 x1000/uL (4.5-11.0)
[2023-07-30 01:59] LABS: ALANINE AMINOTRANSFERASE < 7 IU/L (10-49); ALBUMIN 4.2 g/dL (3.2-4.8); ASPARTATE AMINOTRANSFERASE 11 IU/L (<34); BILIRUBIN TOTAL 0.6 mg/dL (0.1-1.0); CALCIUM 8.6 mg/dL (8.7-10.4); CARBON DIOXIDE 24 mEq/L (21-32); CHLORIDE 110 mEq/L (98-107); CREATININE 0.9 mg/dL (0.6-1.3); GLUCOSE 79 mg/dL (70-105); POTASSIUM 4.8 mEq/L (3.5-5.1); PROTEIN TOTAL 7.4 g/dL (6.0-8.3); SODIUM 139 mEq/L (136-145); UREA NITROGEN BLOOD 22 mg/dL (9-23)
[2023-07-30 02:10] LABS: TROPONIN I HIGH SENSITIVITY < 4 ng/L (3.0-53)
[2023-07-30 04:26] LABS: TROPONIN I HIGH SENSITIVITY < 4 ng/L (3.0-53)
[2023-07-30 04:44] VITALS: BP 89/56; PULSE 71; RESP 15
== END 2023-07-30 04:45 | disposition home or self-care (01) ==
LOC: ER 23:07
DX: R06.02 Shortness of breath (principal); I10 Essential (primary) hypertension; Z86.59 Personal history of other mental and behavioral disorders; Z86.73 Personal history of transient ischemic attack (TIA), and cerebral infarction without residual deficits; Z91.013 Allergy to seafood; Z79.899 Other long term (current) drug therapy
CPT/HCPCS: 36415; 71045; 80053; 83880; 84484; 85025; 85379; 99284

== ENCOUNTER 2023-08-17 18:08 | Emergency (ER) | payer MEDICARE, MEDICAID ==
[~2023-08-17] VITALS: Ht 182.9 cm; Wt 81.0 kg
[2023-08-17 18:21] VITALS: BP 112/59; PULSE 70; RESP 20; TEMP 98.2; O2SAT 97
[2023-08-17 19:53] LABS: BASOPHILS % 0.9 % (0.0-2.0); EOSINOPHILS % 2.2 % (0.0-5.0); HEMATOCRIT. 46.2 % (42.0-52.0); HEMOGLOBIN. 15.3 g/dL (14.0-18.0); MEAN CORPUSCULAR HEMOGLOBIN 29.4 pg (28.0-32.0); MEAN PLATELET VOLUME 8.4 fl (7.4-10.4); MONOCYTES % 10.4 % (2.0-8.0); NEUTROPHILS % 55.5 % (40.0-76.0); PLATELET 220 x1000/uL (130-400); RED BLOOD CELL COUNT 5.19 mill/uL (4.7-6.1); RED CELL DISTRIBUTION WIDTH 13.3 % (11.6-14.6); WHITE BLOOD COUNT 4.5 x1000/uL (4.5-11.0)
[2023-08-17] MEDS ORDERED: ONDANSETRON 4MG ODT PO ONE (20:00)
[2023-08-17 20:08] LABS: ALANINE AMINOTRANSFERASE < 7 IU/L (10-49); ALBUMIN 4.4 g/dL (3.2-4.8); ASPARTATE AMINOTRANSFERASE 13 IU/L (<34); BILIRUBIN TOTAL 0.4 mg/dL (0.1-1.0); CALCIUM 8.7 mg/dL (8.7-10.4); CARBON DIOXIDE 22 mEq/L (21-32); CHLORIDE 113 mEq/L (98-107); GLUCOSE 97 mg/dL (70-105); PROTEIN TOTAL 7.9 g/dL (6.0-8.3); SODIUM 141 mEq/L (136-145); UREA NITROGEN BLOOD 15 mg/dL (9-23)
[2023-08-17 21:26] LABS: TROPONIN I HIGH SENSITIVITY < 4 ng/L (3.0-53)
[2023-08-17] MEDS ORDERED: ONDANSETRON 4MG ODT PO NR (22:45)
[2023-08-17] MEDS ORDERED: GUAIFENESIN 200MG/10ML SUGAR FREE UDC PO PRN (23:45)
[2023-08-17] MEDS ORDERED: IPRATROPIUM/ALBUTEROL 0.5-3(2.5)MG/3ML NEB NEB PRN (23:45)
[2023-08-17] MEDS ORDERED: CLONIDINE 0.1MG TABLET PO PRN (23:45)
[2023-08-17] MEDS ORDERED: ACETAMINOPHEN 325MG TABLET PO PRN ×2 (23:45)
[2023-08-17] MEDS ORDERED: MAGNESIUM/ALUMINUM HYDROXIDE/SIMETHICONE 30ML UDC PO PRN (23:45)
[2023-08-17] MEDS ORDERED: DEXT 5%/0.45% NACL 1000ML 1,000 ML IV SCH (23:45)
[2023-08-17] MEDS ORDERED: ONDANSETRON HCL 4MG/2ML INJ IV PRN (23:45)
[2023-08-18] MEDS ORDERED: ENOXAPARIN 40MG/0.4ML SYR SUBCUT SCH (09:00)
== END 2023-08-17 23:40 | disposition home or self-care (01) ==
LOC: ER 18:08 → EDBEDREQ 22:03 → EDBEDREQTM 22:03 → ER 23:40
DX: R11.2 Nausea with vomiting, unspecified (principal); E78.00 Pure hypercholesterolemia, unspecified; I10 Essential (primary) hypertension; I25.2 Old myocardial infarction; R56.9 Unspecified convulsions; Z86.73 Personal history of transient ischemic attack (TIA), and cerebral infarction without residual deficits; Z79.899 Other long term (current) drug therapy
CPT/HCPCS: 36415; 80053; 84484; 85025; 93005; 99284; Q0162

== ENCOUNTER 2023-09-12 16:03 | Emergency (ER) | payer MEDICARE, MEDICAID ==
[~2023-09-12] VITALS: Ht 177.8 cm; Wt 70.0 kg
[~2023-09-12 16:03] MED LIST changes: +ASPI-1497 MT; -BACL-141 MT; -CYCL5TAB PO; -LINA290C MT
[2023-09-12 16:07] VITALS: O2SAT 94
[2023-09-12 17:13] LABS: CHLORIDE 108 mEq/L (98-107); POTASSIUM 4.1 mEq/L (3.5-5.1); SODIUM 138 mEq/L (136-145)
[2023-09-12 17:14] LABS: CALCIUM 9.1 mg/dL (8.7-10.4); CARBON DIOXIDE 21 mEq/L (21-32)
[2023-09-12 17:19] LABS: CREATININE 0.9 mg/dL (0.6-1.3); ETHANOL BLOOD 30 mg/dL (<10); GLUCOSE 124 mg/dL (70-105); UREA NITROGEN BLOOD 16 mg/dL (9-23)
[2023-09-12 17:23] LABS: TROPONIN I HIGH SENSITIVITY < 4 ng/L (3.0-53)
[2023-09-12 17:28] LABS: BASOPHILS % 0.5 % (0.0-2.0); EOSINOPHILS % 0.9 % (0.0-5.0); HEMATOCRIT. 44.2 % (42.0-52.0); HEMOGLOBIN. 14.6 g/dL (14.0-18.0); LYMPHOCYTES % 17.6 % (20.0-50.0); MEAN CORPUSCULAR HEMOGLOBIN 29.8 pg (28.0-32.0); MEAN CORPUSCULAR HGB CONC 33.2 g/dL (31.0-37.0); MEAN CORPUSCULAR VOLUME 89.9 fL (80.0-94.0); RED BLOOD CELL COUNT 4.91 mill/uL (4.7-6.1); RED CELL DISTRIBUTION WIDTH 13.3 % (11.6-14.6); WHITE BLOOD COUNT 6.6 x1000/uL (4.5-11.0)
[2023-09-12 17:30] LABS: DIFFERENTIAL COMMENT 1
[2023-09-12 18:03] LABS: PLATELET 196 x1000/uL (130-400)
[2023-09-12] MEDS ORDERED: DICYCLOMINE 10 MG/5 ML ORAL SYR PO STA (18:04)
[2023-09-12 18:23] VITALS: TEMP 98.2
[2023-09-12] MEDS: ONDANSETRON 4MG ODT PO STA (19:33)
[2023-09-12] MEDS: MAGNESIUM/ALUMINUM HYDROXIDE/SIMETHICONE 30ML UDC PO STA (19:33)
[2023-09-12] MEDS: DICYCLOMINE HCL 10MG CAPSULE PO NR (19:33)
[2023-09-12 19:53] LABS: TROPONIN I HIGH SENSITIVITY < 4 ng/L (3.0-53)
[2023-09-12 19:57] LABS: INR 0.9; PARTIAL THROMBOPLASTIN TIME 26.1 sec (23.4-31.0); PROTHROMBIN TIME 10.1 sec (9.6-11.0)
[2023-09-12] MEDS ORDERED: FAMO-135 MT (19:59)
[2023-09-12 20:40] VITALS: BP 148/75; PULSE 80; RESP 18
== END 2023-09-12 20:30 | disposition home or self-care (01) ==
LOC: ER 16:03
DX: F10.129 Alcohol abuse with intoxication, unspecified (principal); K29.20 Alcoholic gastritis without bleeding; E78.00 Pure hypercholesterolemia, unspecified; I10 Essential (primary) hypertension; I25.2 Old myocardial infarction; Z86.73 Personal history of transient ischemic attack (TIA), and cerebral infarction without residual deficits; Z91.013 Allergy to seafood; Y90.1 Blood alcohol level of 20-39 mg/100 ml
CPT/HCPCS: 80048; 80320; 83880; 83690; 85025; 85610; 85730; 84484; 36415; 71045; 93005; 99285; Q0162; G0480

== ENCOUNTER 2023-09-22 17:51 | Emergency (ER) | payer MEDICARE, MEDICAID ==
[~2023-09-22] VITALS: Ht 177.8 cm; Wt 84.0 kg
[~2023-09-22 17:51] MED LIST changes: +FAMO-135 MT
[2023-09-22 18:36] VITALS: O2SAT 98
[2023-09-22 18:41] LABS: BASOPHILS % 0.7 % (0.0-2.0); HEMATOCRIT. 44.9 % (42.0-52.0); HEMOGLOBIN. 14.9 g/dL (14.0-18.0); LYMPHOCYTES % 30.2 % (20.0-50.0); MEAN CORPUSCULAR HEMOGLOBIN 29.9 pg (28.0-32.0); MEAN CORPUSCULAR HGB CONC 33.1 g/dL (31.0-37.0); MEAN CORPUSCULAR VOLUME 90.3 fL (80.0-94.0); MEAN PLATELET VOLUME 8.1 fl (7.4-10.4); MONOCYTES % 11.6 % (2.0-8.0); NEUTROPHILS % 55.5 % (40.0-76.0); PLATELET 232 x1000/uL (130-400); RED BLOOD CELL COUNT 4.97 mill/uL (4.7-6.1); RED CELL DISTRIBUTION WIDTH 13.5 % (11.6-14.6); WHITE BLOOD COUNT 4.1 x1000/uL (4.5-11.0)
[2023-09-22 18:45] LABS: CHLORIDE 112 mEq/L (98-107); POTASSIUM 3.8 mEq/L (3.5-5.1); SODIUM 142 mEq/L (136-145)
[2023-09-22 18:46] LABS: CALCIUM 9.1 mg/dL (8.7-10.4); CARBON DIOXIDE 23 mEq/L (21-32)
[2023-09-22 18:51] LABS: CREATININE 0.9 mg/dL (0.6-1.3); GLUCOSE 101 mg/dL (70-105); UREA NITROGEN BLOOD 16 mg/dL (9-23)
[2023-09-22 19:01] LABS: TROPONIN I HIGH SENSITIVITY < 4 ng/L (3.0-53)
[2023-09-22 23:48] LABS: TROPONIN I HIGH SENSITIVITY < 4 ng/L (3.0-53)
[2023-09-23 00:07] VITALS: BP 129/81; PULSE 60; RESP 16; TEMP 97.5
== END 2023-09-23 00:08 | disposition home or self-care (01) ==
LOC: ER 17:51
DX: R06.02 Shortness of breath (principal); R11.0 Nausea; R07.9 Chest pain, unspecified; G40.909 Epilepsy, unspecified, not intractable, without status epilepticus; E78.00 Pure hypercholesterolemia, unspecified; I25.2 Old myocardial infarction; Z86.73 Personal history of transient ischemic attack (TIA), and cerebral infarction without residual deficits; Z98.890 Other specified postprocedural states
CPT/HCPCS: 36415; 71045; 80048; 83880; 84484; 85025; 93005; 99285

== ENCOUNTER 2023-10-20 13:28 | Emergency (ER) | payer MEDICARE, MEDICAID ==
[~2023-10-20] VITALS: Ht 177.8 cm; Wt 77.0 kg
[~2023-10-20 13:28] MED LIST changes: -ATOR10TA69 MT; -DOCU250C69 MT; -FAMO-135 MT
[2023-10-20 13:31] VITALS: O2SAT 96
[2023-10-20 14:49] LABS: BASOPHILS % 0.7 % (0.0-2.0); EOSINOPHILS % 0.5 % (0.0-5.0); HEMOGLOBIN. 13.8 g/dL (14.0-18.0); LYMPHOCYTES % 18.8 % (20.0-50.0); MEAN CORPUSCULAR HEMOGLOBIN 29.3 pg (28.0-32.0); MEAN CORPUSCULAR HGB CONC 32.2 g/dL (31.0-37.0); MEAN CORPUSCULAR VOLUME 90.9 fL (80.0-94.0); MONOCYTES % 8.3 % (2.0-8.0); NEUTROPHILS % 71.7 % (40.0-76.0); PLATELET 215 x1000/uL (130-400); RED BLOOD CELL COUNT 4.73 mill/uL (4.7-6.1); WHITE BLOOD COUNT 6.2 x1000/uL (4.5-11.0)
[2023-10-20 14:54] LABS: CHLORIDE 112 mEq/L (98-107); POTASSIUM 3.9 mEq/L (3.5-5.1); SODIUM 144 mEq/L (136-145)
[2023-10-20 14:55] LABS: CALCIUM 8.4 mg/dL (8.7-10.4); CARBON DIOXIDE 26 mEq/L (21-32)
[2023-10-20 15:00] LABS: CREATININE 0.8 mg/dL (0.6-1.3); ETHANOL BLOOD < 10 mg/dL (<10); GLUCOSE 73 mg/dL (70-105); UREA NITROGEN BLOOD 17 mg/dL (9-23)
[2023-10-20] MEDS: CALCIUM GLUCONATE 1GM PREMIX 50 ML IV ONE (16:33)
[2023-10-20] MEDS: CHLORDIAZEPOXIDE 25MG CAPSULE PO ONE (16:33)
[2023-10-20 16:58] VITALS: BP 125/81; PULSE 58; RESP 20; TEMP 98.1
[2023-10-20 17:17] LABS: CLARITY URINE CLEAR (CLEAR); COLOR URINE YELLOW (YELLOW); GLUCOSE URINE 3+ (NEGATIVE); KETONES URINE NEGATIVE (NEGATIVE); LEUKOCYTE ESTERASE URINE NEGATIVE (NEGATIVE); NITRITE URINE NEGATIVE (NEGATIVE); OCCULT BLOOD URINE TRACE (NEGATIVE); PH URINE 5.5 (4.5-8.0); PROTEIN URINE NEGATIVE (NEGATIVE); SPECIFIC GRAVITY URINE 1.026 (1.005-1.030)
[2023-10-20 17:24] LABS: *AMPHETAMINES SCREEN URINE NEGATIVE (NEGATIVE); *BARBITURATES SCREEN URINE NEGATIVE (NEGATIVE); *BENZODIAZEPINES SCREEN URINE NEGATIVE (NEGATIVE); *COCAINE SCREEN URINE NEGATIVE (NEGATIVE); CANNABINOID URINE SCREEN NEGATIVE (NEGATIVE); ECSTASY MDMA SCREEN URINE NEGATIVE (NEGATIVE); METHADONE URINE SCREEN NEGATIVE (NEGATIVE); OPIATES URINE SCREEN NEGATIVE (NEGATIVE); PHENCYCLIDINE URINE SCREEN NEGATIVE (NEGATIVE)
[2023-10-20 17:31] LABS: BACTERIA URINE 1+; RBC URINE 0-2 /hpf (0-2); SQUAMOUS EPITHELIAL CELL URINE FEW /lpf (RARE/1+); WBC URINE 0-2 /hpf (0-2)
== END 2023-10-20 17:03 | disposition home or self-care (01) ==
LOC: ER 13:28
DX: E83.51 Hypocalcemia (principal); R56.9 Unspecified convulsions; E78.00 Pure hypercholesterolemia, unspecified; I25.2 Old myocardial infarction; I10 Essential (primary) hypertension; Z91.013 Allergy to seafood; Z86.59 Personal history of other mental and behavioral disorders; Z86.73 Personal history of transient ischemic attack (TIA), and cerebral infarction without residual deficits
CPT/HCPCS: 80305; 80048; 81003; 80320; 85025; 36415; 99283; 82542; J0610; G0480

== ENCOUNTER 2024-10-28 20:38 | Emergency (ER) | payer MEDICARE, MEDICAID ==
[~2024-10-28] VITALS: Ht 177.8 cm; Wt 82.0 kg
[~2024-10-28 20:38] MED LIST changes: +AMLO5TAB88 PO; +ASPI-1160 PO; -ASPI-1497 MT; +CARI-517 PO; +GABA-529 PO; -GABA-532 MT; +LAM1 PO; -ZONI100C45 PO
[2024-10-28 20:51] VITALS: O2SAT 96
[2024-10-28] MEDS: LEVETIRACETAM 500MG TABLET PO ONE (23:01)
[2024-10-28] MEDS: ACETAMINOPHEN 325MG TABLET PO ONE (23:02)
[2024-10-29] MEDS ORDERED: ACET-2708 MT (01:35)
[2024-10-29] MEDS: TRAMADOL 50MG TABLET PO ONE (02:48)
[2024-10-29 03:02] VITALS: BP 144/99; PULSE 55; RESP 18; TEMP 36.6; O2SAT 97
[2024-10-30] MEDS ORDERED: HYDR-4001 PO (23:06)
== END 2024-10-29 03:44 | disposition home or self-care (01) ==
LOC: ER 20:38
DX: S09.90XA Unspecified injury of head, initial encounter (principal); M54.2 Cervicalgia; E78.00 Pure hypercholesterolemia, unspecified; I25.2 Old myocardial infarction; I10 Essential (primary) hypertension; Z79.82 Long term (current) use of aspirin; Z91.013 Allergy to seafood; Z79.899 Other long term (current) drug therapy; Z86.73 Personal history of transient ischemic attack (TIA), and cerebral infarction without residual deficits; Z86.59 Personal history of other mental and behavioral disorders; W22.8XXA Striking against or struck by other objects, initial encounter; Y93.89 Activity, other specified; Y92.89 Other specified places as the place of occurrence of the external cause; Y99.8 Other external cause status
CPT/HCPCS: 93005; 99284

== ENCOUNTER 2024-11-01 12:29 | Inpatient (IN) | payer MEDICARE, MEDICAID ==
[~2024-11-01] VITALS: Ht 177.8 cm; Wt 79.8 kg
[~2024-11-01 12:29] MED LIST changes: +ACET-2708 MT; +HYDR-4001 PO
[2024-11-01 13:21] LABS: BASOPHILS % 0.4 % (0.0-2.0); EOSINOPHILS % 1.6 % (0.0-5.0); HEMATOCRIT. 39.7 % (42.0-52.0); HEMOGLOBIN. 13.3 g/dL (14.0-18.0); LYMPHOCYTES % 21.7 % (20.0-50.0); MEAN PLATELET VOLUME 7.8 fl (7.4-10.4); MONOCYTES % 13.2 % (2.0-8.0); NEUTROPHILS % 63.1 % (40.0-76.0); PLATELET 210 x1000/uL (130-400); RED BLOOD CELL COUNT 4.41 mill/uL (4.7-6.1); RED CELL DISTRIBUTION WIDTH 13.2 % (11.6-14.6)
[2024-11-01] MEDS: MECLIZINE 25MG TABLET PO ONE (13:30)
[2024-11-01 13:55] LABS: CREATININE 1.0 mg/dL (0.6-1.3)
[2024-11-01 13:56] LABS: TROPONIN I HIGH SENSITIVITY < 4 ng/L (3.0-53); UREA NITROGEN BLOOD 13 mg/dL (9-23)
[2024-11-01 15:00] LABS: CLARITY URINE CLEAR (CLEAR); COLOR URINE YELLOW (YELLOW); GLUCOSE URINE NEGATIVE (NEGATIVE); KETONES URINE NEGATIVE (NEGATIVE); NITRITE URINE NEGATIVE (NEGATIVE); OCCULT BLOOD URINE 1+ (NEGATIVE); PH URINE 5.5 (4.5-8.0); PROTEIN URINE NEGATIVE (NEGATIVE); SPECIFIC GRAVITY URINE 1.016 (1.005-1.030); UROBILINOGEN URINE 0.2 E.U./dL (0.2-1.0)
[2024-11-01 15:01] LABS: LEUKOCYTE ESTERASE URINE 2+ (NEGATIVE)
[2024-11-01 15:06] LABS: MUCUS URINE TRACE /lpf (NONE/TRACE); SQUAMOUS EPITHELIAL CELL URINE RARE /lpf (RARE/1+)
[2024-11-01 15:07] LABS: BACTERIA URINE 2+
[2024-11-01 15:08] LABS: WBC URINE 25-50 /hpf (0-2)
[2024-11-01 15:40] VITALS: BP 135/78; PULSE 58; RESP 16; TEMP 36.7
[2024-11-01 16:00] VITALS: BP 135/78; PULSE 58; RESP 16; TEMP 36.7; O2SAT 100
[2024-11-01] MEDS ORDERED: CLONIDINE 0.1MG TABLET PO PRN (16:15)
[2024-11-01] MEDS ORDERED: IPRATROPIUM/ALBUTEROL 0.5-3(2.5)MG/3ML NEB NEB PRN (16:15)
[2024-11-01] MEDS ORDERED: NALOXONE HCL 0.4MG/ML VIAL IV PRN (16:30)
[2024-11-01] MEDS: CEFTRIAXONE 1GM/50ML 50 ML IV SCH (18:20)
[2024-11-01] MEDS ORDERED: *PATIENT'S OWN MEDICATION STORAGE XX SCH (18:45)
[2024-11-01 20:00] VITALS: BP 107/70; PULSE 58; RESP 18; TEMP 37; O2SAT 98
[2024-11-01] MEDS: LEVETIRACETAM 500MG TABLET PO SCH (20:20)
[2024-11-01] MEDS: ATORVASTATIN CALCIUM 20MG TABLET PO SCH (20:20)
[2024-11-01] MEDS: BISACODYL 5MG TABLET PO PRN (20:20)
[2024-11-01] MEDS: LAMOTRIGINE 100MG TABLET PO SCH (20:23)
[2024-11-01] MEDS: HYDROCODONE/ACETAMINOPHEN 5/325MG TABLET PO PRN (20:30)
[2024-11-01] MEDS: MECLIZINE 25MG TABLET PO SCH (22:00)
[2024-11-01] MEDS: GABAPENTIN 100MG CAPSULE PO SCH (22:00)
[2024-11-01] MEDS: ENOXAPARIN 40MG/0.4ML SYR SUBCUT SCH (22:06)
[2024-11-01] MEDS: TERAZOSIN HCL 5MG CAPSULE PO SCH (22:08)
[2024-11-01 23:49] LABS: TROPONIN I HIGH SENSITIVITY < 4 ng/L (3.0-53)
[2024-11-02] VITALS: BP 118/61; PULSE 63; RESP 18; TEMP 36.9; O2SAT 94
[2024-11-02 04:00] VITALS: BP 87/44; PULSE 64; RESP 18; TEMP 36.9; O2SAT 98
[2024-11-02 06:55] LABS: TROPONIN I HIGH SENSITIVITY < 4 ng/L (3.0-53)
[2024-11-02 06:58] LABS: CREATININE 1.0 mg/dL (0.6-1.3); UREA NITROGEN BLOOD 14 mg/dL (9-23)
[2024-11-02 07:05] LABS: BASOPHILS % 0.7 % (0.0-2.0); EOSINOPHILS % 1.9 % (0.0-5.0); HEMATOCRIT. 39.6 % (42.0-52.0); HEMOGLOBIN. 13.2 g/dL (14.0-18.0); LYMPHOCYTES % 27.5 % (20.0-50.0); MEAN PLATELET VOLUME 8.0 fl (7.4-10.4); MONOCYTES % 14.8 % (2.0-8.0); NEUTROPHILS % 55.1 % (40.0-76.0); PLATELET 203 x1000/uL (130-400); RED BLOOD CELL COUNT 4.35 mill/uL (4.7-6.1); RED CELL DISTRIBUTION WIDTH 13.0 % (11.6-14.6)
[2024-11-02 08:00] VITALS: BP 134/77; PULSE 61; RESP 17; TEMP 36.8; O2SAT 95
[2024-11-02] MEDS: AMLODIPINE 5MG TABLET PO SCH (08:58)
[2024-11-02] MEDS: ASPIRIN 81MG TABLET PO SCH (08:58)
[2024-11-02] MEDS: PANTOPRAZOLE SODIUM 40 MG/VIAL IV SCH (08:58)
[2024-11-02 09:31] LABS: *AMPHETAMINES SCREEN URINE NEGATIVE (NEGATIVE); *BARBITURATES SCREEN URINE NEGATIVE (NEGATIVE); *BENZODIAZEPINES SCREEN URINE NEGATIVE (NEGATIVE); *COCAINE SCREEN URINE NEGATIVE (NEGATIVE)
[2024-11-02 09:32] LABS: CANNABINOID URINE SCREEN NEGATIVE (NEGATIVE); ECSTASY MDMA SCREEN URINE NEGATIVE (NEGATIVE); METHADONE URINE SCREEN NEGATIVE (NEGATIVE); OPIATES URINE SCREEN PRESUMPTIVE POSITIVE (NEGATIVE); PHENCYCLIDINE URINE SCREEN NEGATIVE (NEGATIVE)
[2024-11-02 12:00] VITALS: PULSE 76; RESP 18; TEMP 36.5; O2SAT 95
[2024-11-02 16:00] VITALS: BP 107/65; PULSE 69; RESP 19; TEMP 36.5; O2SAT 98
[2024-11-02 20:00] VITALS: BP 115/77; PULSE 64; RESP 17; TEMP 37.2; O2SAT 96
[2024-11-02] MEDS: LACTULOSE 20G/30ML UDC PO PRN (23:41)
[2024-11-03] VITALS: BP 92/53; PULSE 66; RESP 16; TEMP 36.6; O2SAT 97
[2024-11-03 04:00] VITALS: BP 101/65; PULSE 57; RESP 16; TEMP 36.4; O2SAT 97
[2024-11-03 07:16] LABS: BASOPHILS % 0.6 % (0.0-2.0); EOSINOPHILS % 1.9 % (0.0-5.0); HEMATOCRIT. 39.6 % (42.0-52.0); HEMOGLOBIN. 12.8 g/dL (14.0-18.0); LYMPHOCYTES % 26.8 % (20.0-50.0); MEAN PLATELET VOLUME 7.7 fl (7.4-10.4); MONOCYTES % 12.5 % (2.0-8.0); NEUTROPHILS % 58.2 % (40.0-76.0); PLATELET 203 x1000/uL (130-400); RED BLOOD CELL COUNT 4.37 mill/uL (4.7-6.1); RED CELL DISTRIBUTION WIDTH 12.9 % (11.6-14.6)
[2024-11-03 07:39] LABS: CREATININE 1.0 mg/dL (0.6-1.3); UREA NITROGEN BLOOD 16 mg/dL (9-23)
[2024-11-03 08:00] VITALS: BP 121/69; PULSE 57; RESP 19; TEMP 36.7; O2SAT 94
[2024-11-03] MEDS: MAGNESIUM/ALUMINUM HYDROXIDE/SIMETHICONE 30ML UDC PO PRN (13:22)
[2024-11-03] MEDS: NA PHOS,M-B/NA PHOS,DI-BA ENEMA 118ML PR NR (13:41)
[2024-11-03 16:00] VITALS: BP 118/74; PULSE 69; RESP 18; TEMP 36.6; O2SAT 95
[2024-11-03 20:00] VITALS: BP 108/68; PULSE 73; RESP 16; TEMP 36.4; O2SAT 97
[2024-11-04] VITALS: BP 102/63; PULSE 74; RESP 18; TEMP 36.7; O2SAT 96
[2024-11-04 04:00] VITALS: BP 125/77; PULSE 69; RESP 16; TEMP 36.5; O2SAT 96
[2024-11-04] MEDS: ONDANSETRON HCL 4MG/2ML INJ IV PRN (05:22)
[2024-11-04 07:37] LABS: HEMATOCRIT. 38.9 % (42.0-52.0); HEMOGLOBIN. 12.9 g/dL (14.0-18.0); MEAN PLATELET VOLUME 8.1 fl (7.4-10.4); PLATELET 199 x1000/uL (130-400); RED BLOOD CELL COUNT 4.30 mill/uL (4.7-6.1); RED CELL DISTRIBUTION WIDTH 13.2 % (11.6-14.6)
[2024-11-04 07:56] LABS: CREATININE 1.0 mg/dL (0.6-1.3); UREA NITROGEN BLOOD 15 mg/dL (9-23)
[2024-11-04 08:00] VITALS: BP 100/48; PULSE 76; RESP 18; TEMP 37; O2SAT 97
[2024-11-04 08:56] LABS: BAND% 7.0 % (1.0-6.0); LYMPHOCYTES % MANUAL 5.0 % (20.0-50.0); MONOCYTES % MANUAL 11.0 % (2.0-8.0); NEUTROPHILS % MANUAL 77.0 % (45.0-75.0)
[2024-11-04 08:57] LABS: PLATELET ESTIMATE NORMAL
[2024-11-04] MEDS: ACETAMINOPHEN 325MG TABLET PO PRN (10:13)
[2024-11-04 12:00] VITALS: BP 114/60; PULSE 72; RESP 18; TEMP 37; O2SAT 94
[2024-11-04 16:00] VITALS: BP 85/55; PULSE 68; RESP 19; TEMP 36.6; O2SAT 97
[2024-11-04] MEDS ORDERED: SODIUM CHLORIDE 0.9% 500 ML IV ONE (16:30)
[2024-11-04] MEDS: SODIUM CHLORIDE 0.9% 500 ML IV ONE (16:45)
[2024-11-04 18:26] VITALS: BP 110/80; PULSE 87; TEMP 97.8; O2SAT 96
== END 2024-11-04 19:19 | disposition home or self-care (01) | DRG 690 ==
LOC: ER 12:29 → 5WST 14:28 → EDBEDREQTM 14:30 → EDBEDREQ 14:30 → ENRESERV 14:50
PROVIDERS: ADMIT Internal Medicine; ATTEND Internal Medicine
DX: N39.0 Urinary tract infection, site not specified (principal); I69.354 Hemiplegia and hemiparesis following cerebral infarction affecting left non-dominant side; R42 Dizziness and giddiness; I10 Essential (primary) hypertension; R29.6 Repeated falls; E78.00 Pure hypercholesterolemia, unspecified; G40.909 Epilepsy, unspecified, not intractable, without status epilepticus; I25.10 Atherosclerotic heart disease of native coronary artery without angina pectoris; N40.0 Benign prostatic hyperplasia without lower urinary tract symptoms; Z99.3 Dependence on wheelchair; Z98.2 Presence of cerebrospinal fluid drainage device
CPT/HCPCS: 36415; 80048; 80305; 81003; 84484; 85025; 93005; 93880; 93970; 97162; 99285; J0696; J1650; J2405; J2470; J8597

== ENCOUNTER 2025-02-04 23:50 | Emergency (ER) | payer MEDICARE, MEDICAID ==
[~2025-02-04] VITALS: Ht 177.8 cm; Wt 79.0 kg
[~2025-02-04 23:50] MED LIST changes: -AMLO5TAB88 PO; -CARI-517 PO; -HYDR-4001 PO
[2025-02-05 00:04] VITALS: O2SAT 99
[2025-02-05] MEDS: CARISOPRODOL 350 MG TABLET PO ONE (00:59)
[2025-02-05] MEDS ORDERED: CARI250T MT (02:16)
[2025-02-05 03:49] VITALS: BP 132/71; PULSE 62; RESP 16; TEMP 36.9; O2SAT 99
== END 2025-02-05 03:52 | disposition home or self-care (01) ==
LOC: ER 23:50
DX: M62.838 Other muscle spasm (principal); E78.00 Pure hypercholesterolemia, unspecified; I10 Essential (primary) hypertension; Z79.82 Long term (current) use of aspirin; Z79.899 Other long term (current) drug therapy; Z86.73 Personal history of transient ischemic attack (TIA), and cerebral infarction without residual deficits; Z91.013 Allergy to seafood
CPT/HCPCS: 99283

== ENCOUNTER 2025-02-27 08:53 | Inpatient (IN) | payer MEDICARE, MEDICAID ==
[~2025-02-27] VITALS: Ht 180.3 cm; Wt 88.5 kg
[~2025-02-27 08:53] MED LIST changes: +CARI250T MT
[2025-02-27 08:59] VITALS: O2SAT 100
[2025-02-27] MEDS: SODIUM CHLORIDE 0.9% 1,000 ML IV ONE (09:54)
[2025-02-27 09:57] LABS: BASOPHILS % 0.8 % (0.0-2.0); EOSINOPHILS % 2.6 % (0.0-5.0); HEMATOCRIT. 45.8 % (42.0-52.0); HEMOGLOBIN. 14.6 g/dL (14.0-18.0); LYMPHOCYTES % 30.7 % (20.0-50.0); MEAN PLATELET VOLUME 8.0 fl (7.4-10.4); MONOCYTES % 12.3 % (2.0-8.0); NEUTROPHILS % 53.6 % (40.0-76.0); PLATELET 200 x1000/uL (130-400); RED BLOOD CELL COUNT 4.95 mill/uL (4.7-6.1); RED CELL DISTRIBUTION WIDTH 14.0 % (11.6-14.6)
[2025-02-27] MEDS: MECLIZINE 25MG TABLET PO NR (10:06)
[2025-02-27 10:13] LABS: CREATININE 0.9 mg/dL (0.6-1.3); UREA NITROGEN BLOOD 12 mg/dL (9-23)
[2025-02-27 11:18] LABS: CLARITY URINE CLEAR (CLEAR); COLOR URINE YELLOW (YELLOW); GLUCOSE URINE NEGATIVE (NEGATIVE); KETONES URINE NEGATIVE (NEGATIVE); LEUKOCYTE ESTERASE URINE 3+ (NEGATIVE); NITRITE URINE POSITIVE (NEGATIVE); OCCULT BLOOD URINE 1+ (NEGATIVE); PH URINE 6.0 (4.5-8.0); PROTEIN URINE TRACE (NEGATIVE); SPECIFIC GRAVITY URINE 1.021 (1.005-1.030); UROBILINOGEN URINE 1.0 E.U./dL (0.2-1.0)
[2025-02-27 11:48] LABS: TROPONIN I HIGH SENSITIVITY < 4 ng/L (3.0-53)
[2025-02-27 11:48] LABS: RBC URINE 0-2 /hpf (0-2); SQUAMOUS EPITHELIAL CELL URINE RARE /lpf (RARE/1+); WBC URINE 25-50 /hpf (0-2)
[2025-02-27 11:53] LABS: BACTERIA URINE 3+; YEAST URINE NONE SEEN
[2025-02-27] MEDS ORDERED: GUAIFENESIN 200MG/10ML SUGAR FREE UDC PO PRN (12:15)
[2025-02-27] MEDS ORDERED: ONDANSETRON HCL 4MG/2ML INJ IV PRN (12:15)
[2025-02-27] MEDS ORDERED: IPRATROPIUM/ALBUTEROL 0.5-3(2.5)MG/3ML NEB HHN PRN (12:15)
[2025-02-27] MEDS ORDERED: DOCUSATE SODIUM 100MG CAPSULE PO PRN (12:15)
[2025-02-27] MEDS ORDERED: ACETAMINOPHEN 325MG TABLET PO PRN (12:15)
[2025-02-27] MEDS: LEVETIRACETAM 500MG TABLET PO SCH ×2 (12:45→22:17)
[2025-02-27] MEDS: ASPIRIN 81MG TABLET PO SCH (12:45)
[2025-02-27] MEDS ORDERED: DEXTROSE 50% WATER 50ML SYRINGE IV PRN (14:30)
[2025-02-27 16:00] VITALS: BP 111/58; PULSE 54; RESP 18; TEMP 36.6; O2SAT 97
[2025-02-27] MEDS: CEFTRIAXONE 1GM/50ML 50 ML IV SCH (16:20)
[2025-02-27] MEDS: ACETAMINOPHEN 325MG TABLET PO PRN (16:21)
[2025-02-27] MEDS: BLOOD SUGAR DIAGNOSTIC STRIP TEST SCH (16:40)
[2025-02-27 17:00] VITALS: BP 111/58; PULSE 54; RESP 18; TEMP 36.5848
[2025-02-27] MEDS: TRAMADOL 50MG TABLET PO NR (18:25)
[2025-02-27 20:00] VITALS: BP 105/67; PULSE 55; RESP 17; TEMP 36.2; O2SAT 95
[2025-02-27 20:16] LABS: *AMPHETAMINES SCREEN URINE NEGATIVE (NEGATIVE); *BARBITURATES SCREEN URINE NEGATIVE (NEGATIVE); *BENZODIAZEPINES SCREEN URINE NEGATIVE (NEGATIVE)
[2025-02-27 20:17] LABS: *COCAINE SCREEN URINE NEGATIVE (NEGATIVE); CANNABINOID URINE SCREEN NEGATIVE (NEGATIVE); ECSTASY MDMA SCREEN URINE NEGATIVE (NEGATIVE); METHADONE URINE SCREEN NEGATIVE (NEGATIVE); OPIATES URINE SCREEN PRESUMPTIVE POSITIVE (NEGATIVE); PHENCYCLIDINE URINE SCREEN NEGATIVE (NEGATIVE)
[2025-02-27] MEDS: LAMOTRIGINE 100MG TABLET PO SCH (22:16)
[2025-02-27] MEDS: ATORVASTATIN CALCIUM 20MG TABLET PO SCH (22:16)
[2025-02-28] VITALS: BP 85/43; PULSE 58; RESP 17; TEMP 36.3; O2SAT 97
[2025-02-28 00:21] LABS: TROPONIN I HIGH SENSITIVITY < 4 ng/L (3.0-53)
[2025-02-28 04:00] VITALS: BP 103/55; PULSE 55; RESP 18; TEMP 36.3; O2SAT 96
[2025-02-28 08:00] VITALS: BP 122/68; PULSE 63; RESP 16; TEMP 36.5; O2SAT 100
[2025-02-28] MEDS ORDERED: POLYETHYLENE GLYCOL 3350 (17GM) 1 DOSE PACK PO PRN (08:45)
[2025-02-28 09:18] LABS: CREATININE 1.0 mg/dL (0.6-1.3); TRIGLYCERIDE 81 mg/dL (0-150); UREA NITROGEN BLOOD 19 mg/dL (9-23)
[2025-02-28 09:19] LABS: LDL CHOLESTEROL 78 mg/dL (5-100)
[2025-02-28 09:20] LABS: PHOSPHORUS 3.1 mg/dL (2.5-4.9)
[2025-02-28 09:22] LABS: T4 FREE 1.14 ng/dL (0.89-1.76)
[2025-02-28 09:24] LABS: BASOPHILS % 1.2 % (0.0-2.0); EOSINOPHILS % 2.4 % (0.0-5.0); HEMATOCRIT. 41.9 % (42.0-52.0); HEMOGLOBIN. 13.3 g/dL (14.0-18.0); LYMPHOCYTES % 34.3 % (20.0-50.0); MONOCYTES % 10.8 % (2.0-8.0); NEUTROPHILS % 51.3 % (40.0-76.0); RED BLOOD CELL COUNT 4.53 mill/uL (4.7-6.1); RED CELL DISTRIBUTION WIDTH 13.7 % (11.6-14.6)
[2025-02-28] MEDS: POLYETHYLENE GLYCOL 3350 (17GM) 1 DOSE PACK PO NR (09:42)
[2025-02-28] MEDS ORDERED: HYDROCODONE/ACETAMINOPHEN 5/325MG TABLET PO PRN (10:45)
[2025-02-28] MEDS ORDERED: NALOXONE HCL 0.4MG/ML VIAL IV PRN (11:00)
[2025-02-28 11:38] LABS: MEAN PLATELET VOLUME 8.2 fl (7.4-10.4); PLATELET 206 x1000/uL (130-400)
[2025-02-28 12:00] VITALS: BP 129/83; PULSE 68; RESP 16; TEMP 36.4; O2SAT 100
[2025-02-28] MEDS: MAGNESIUM 1 G PREMIX 100 ML IV SCH (13:16)
[2025-02-28 16:00] VITALS: BP 139/76; PULSE 70; RESP 16; TEMP 36.6; O2SAT 93
[2025-02-28 20:00] VITALS: BP 116/62; PULSE 59; RESP 16; TEMP 36.7; O2SAT 97
[2025-03-01] VITALS: BP 114/75; PULSE 54; RESP 18; TEMP 36.7; O2SAT 93
[2025-03-01 04:00] VITALS: BP 141/91; PULSE 62; RESP 18; TEMP 36.7; O2SAT 99
[2025-03-01 06:00] VITALS: BP_SYST 124; BP_SYST 153; BP_SYST 171; BP_DIAS 72; BP_DIAS 95; BP_DIAS 99; PULSE 56
[2025-03-01] MEDS: CARISOPRODOL 350 MG TABLET PO PRN (06:17)
[2025-03-01 08:00] VITALS: BP 131/71; PULSE 65; RESP 18; TEMP 36.6; O2SAT 99
[2025-03-01] MEDS ORDERED: CARI250T MT (08:21)
[2025-03-01] MEDS ORDERED: AMLO5TAB6 MT (08:28)
[2025-03-01] MEDS: AMLODIPINE 5MG TABLET PO SCH (09:50)
[2025-03-01 11:58] VITALS: BP 125/60; PULSE 65; RESP 18; TEMP 97
[2025-03-01 12:00] VITALS: BP 125/61; PULSE 65; RESP 18; TEMP 36.1; O2SAT 99
[2025-03-14] MEDS ORDERED: LEVE1000 MT (17:21)
[2025-03-14] MEDS ORDERED: LEVE1000 PO (17:21)
[2025-03-17] MEDS ORDERED: NITR-87 MT (10:03)
[2025-03-31] MEDS ORDERED: LEVE1000 MT (10:06)
== END 2025-03-01 13:23 | disposition home or self-care (01) | DRG 74 ==
LOC: ER 08:53 → 5WST 11:23 → EDBEDREQ 12:01 → EDBEDREQTM 12:01 → ENRESERV 13:59
PROVIDERS: ADMIT Hospitalist; ATTEND Hospitalist
DX: G90.89 Other disorders of autonomic nervous system (principal); I69.354 Hemiplegia and hemiparesis following cerebral infarction affecting left non-dominant side; I50.32 Chronic diastolic (congestive) heart failure; I11.0 Hypertensive heart disease with heart failure; N39.0 Urinary tract infection, site not specified; G40.909 Epilepsy, unspecified, not intractable, without status epilepticus; I34.0 Nonrheumatic mitral (valve) insufficiency; E86.0 Dehydration; E16.2 Hypoglycemia, unspecified; E83.42 Hypomagnesemia; I25.10 Atherosclerotic heart disease of native coronary artery without angina pectoris; F41.9 Anxiety disorder, unspecified; K59.03 Drug induced constipation; T40.2X5A Adverse effect of other opioids, initial encounter; E78.00 Pure hypercholesterolemia, unspecified; N40.0 Benign prostatic hyperplasia without lower urinary tract symptoms; Z79.82 Long term (current) use of aspirin; Z79.899 Other long term (current) drug therapy; Z98.2 Presence of cerebrospinal fluid drainage device; I25.2 Old myocardial infarction; Y92.89 Other specified places as the place of occurrence of the external cause
CPT/HCPCS: 36415; 80048; 80061; 80305; 81003; 82550; 82962; 83036; 83605; 83735; 84100; 84145; 84439; 84443; 84484; 85025; 93005; 93970; 96360; 97162; 97166; 99285; J0696; J3475; J7030; J8597